=== PATIENT | female | born 1955 | race Caucasian/White ===

== ENCOUNTER 2016-02-27 13:51 | Inpatient (IN) | payer MEDICAID ==
[~2016-02-27] VITALS: Ht 149.9 cm; Wt 76.7 kg
[2016-02-27] VITALS (14 sets, daily range): BP systolic 78–94; RESP 12–25; TEMP 97.5; Ht 149.9 cm; Wt 76.7 kg
[2016-02-27] MEDS ORDERED: SODIUM CHLORIDE 0.9% 1,000 ML ONE ×2 (14:24→15:45)
[2016-02-27] MEDS ORDERED: TRAMADOL 50 MG TAB PO PRN (15:30)
[2016-02-27] MEDS ORDERED: ACETAMINOPHEN 325 MG TAB PO PRN (15:30)
[2016-02-27] MEDS ORDERED: NITROGLYCERIN SL 0.4 MG TAB SL PRN (15:30)
[2016-02-27] MEDS ORDERED: ONDANSETRON 4 MG VIAL IV PRN (15:30)
[2016-02-27] MEDS ORDERED: LORAZEPAM 0.5 MG TAB PO PRN (15:30)
[2016-02-27] MEDS ORDERED: MORPHINE 2 MG/ML SYR IV PRN (15:30)
[2016-02-27] MEDS ORDERED: TEMAZEPAM 15 MG CAP PO PRN (15:30)
[2016-02-27] MEDS ORDERED: DOCUSATE SOD 100 MG CAP PO PRN (15:30)
[2016-02-27] MEDS ORDERED: SALINE FLUSH 10 ML FLUSH PRN (15:30)
[2016-02-27] MEDS ORDERED: ALU/MAG/SIM 30 ML UDC PO PRN (15:30)
[2016-02-27] MEDS: SALINE FLUSH 10 ML FLUSH SCH (19:42)
[2016-02-28] VITALS (23 sets, daily range): BP systolic 87–117; RESP 12–22; TEMP 97.9–98.2
[2016-02-28] MEDS: SODIUM CHLORIDE 0.9% FLUSH BAG 500 ML IV SCH (06:00)
[2016-02-28] MEDS: SALINE FLUSH 10 ML FLUSH SCH ×2 (08:00→20:00)
[2016-02-28] MEDS: *HOME MEDS KEPT IN PHARMACY XX SCH ×2 (08:00→20:00)
[2016-02-28] MEDS ORDERED: MISSING DOSE XX ONE (08:55)
[2016-02-28] MEDS: ASPIRIN 81 MG CHEW TAB PO SCH (09:18)
[2016-02-28] MEDS: ASPIRIN EC 81 MG TAB PO SCH (12:40)
[2016-02-28] MEDS: NEB-ATROVENT INH SCH ×4 (12:40→22:23)
[2016-02-28] MEDS: PREGABALIN 75 MG CAP PO SCH ×2 (13:43→22:58)
[2016-02-28] MEDS: ARIPiprazole 15 MG TAB PO SCH (13:43)
[2016-02-28] MEDS: CITALOPRAM 20 MG TAB PO SCH (13:43)
[2016-02-28] MEDS: MAG OXIDE 400 MG TAB PO SCH ×3 (13:44→22:58)
[2016-02-28] MEDS: MDI-SPIRIVA 5 DOSES INH SCH (16:09)
[2016-02-28] MEDS: ROSUVASTATIN 20 MG TAB PO SCH (22:56)
[2016-02-28] MEDS: TRAZODONE 50 MG TAB PO SCH (22:57)
[2016-02-29 00:10] VITALS: BP_SYST 133; RESP 18; TEMP 97.6
[2016-02-29 04:30] VITALS: BP_SYST 115; RESP 18; TEMP 98.1
[2016-02-29] MEDS: NEB-ATROVENT INH SCH ×4 (05:29→22:57)
[2016-02-29] MEDS: MDI-SPIRIVA 5 DOSES INH SCH (05:30)
[2016-02-29] MEDS: SODIUM CHLORIDE 0.9% FLUSH BAG 500 ML IV SCH (06:00)
[2016-02-29] MEDS: *HOME MEDS KEPT IN PHARMACY XX SCH ×2 (08:00→20:00)
[2016-02-29] MEDS: ASPIRIN 81 MG CHEW TAB PO SCH (08:00)
[2016-02-29 08:13] VITALS: BP_SYST 105; RESP 18; TEMP 98.5
[2016-02-29] MEDS: ARIPiprazole 15 MG TAB PO SCH (08:28)
[2016-02-29] MEDS: ASPIRIN EC 81 MG TAB PO SCH (08:28)
[2016-02-29] MEDS: CITALOPRAM 20 MG TAB PO SCH (08:28)
[2016-02-29] MEDS: PREGABALIN 75 MG CAP PO SCH ×2 (08:28→22:01)
[2016-02-29] MEDS: SALINE FLUSH 10 ML FLUSH SCH ×2 (08:28→21:59)
[2016-02-29] MEDS: MAG OXIDE 400 MG TAB PO SCH ×3 (08:28→22:01)
[2016-02-29 11:38] VITALS: BP_SYST 107; RESP 20; TEMP 97.9
[2016-02-29 16:08] VITALS: BP_SYST 119; RESP 18; TEMP 98
[2016-02-29 20:23] VITALS: BP_SYST 114; RESP 18; TEMP 99.2
[2016-02-29] MEDS: ROSUVASTATIN 20 MG TAB PO SCH (21:59)
[2016-02-29] MEDS: TRAZODONE 50 MG TAB PO SCH (22:00)
[2016-03-01 05:20] VITALS: BP_SYST 95; RESP 18; TEMP 97.7
[2016-03-01] MEDS: SODIUM CHLORIDE 0.9% FLUSH BAG 500 ML IV SCH (06:00)
[2016-03-01] MEDS: NEB-ATROVENT INH SCH ×2 (07:15→15:59)
[2016-03-01] MEDS: MDI-SPIRIVA 5 DOSES INH SCH (07:20)
[2016-03-01 07:44] VITALS: BP_SYST 108; RESP 16; TEMP 98
[2016-03-01] MEDS: *HOME MEDS KEPT IN PHARMACY XX SCH ×2 (08:00→16:22)
[2016-03-01] MEDS: ARIPiprazole 15 MG TAB PO SCH (08:54)
[2016-03-01] MEDS: ASPIRIN EC 81 MG TAB PO SCH (08:55)
[2016-03-01] MEDS: PREGABALIN 75 MG CAP PO SCH (08:55)
[2016-03-01] MEDS: MAG OXIDE 400 MG TAB PO SCH ×2 (08:55→16:12)
[2016-03-01] MEDS: CITALOPRAM 20 MG TAB PO SCH ×2 (08:55→09:23)
[2016-03-01] MEDS: SALINE FLUSH 10 ML FLUSH SCH (08:56)
[2016-03-01] MEDS ORDERED: MISSING DOSE XX ONE (09:00)
[2016-03-01] MEDS: ASPIRIN 81 MG CHEW TAB PO SCH (11:28)
[2016-03-01 11:29] VITALS: BP_SYST 107; RESP 16; TEMP 98.1
[2016-03-01 15:16] VITALS: BP_SYST 107; RESP 16; TEMP 98.1
== END 2016-03-01 17:09 | disposition home or self-care (01) | DRG 683 ==
LOC: ENRESERVTM → ENRESERVDT → ER 13:51 → EMR 15:42 → ENPENDDIS 15:42 → CCU 18:01 → PCU2 02-28 17:59
PROVIDERS: ADMIT Specialist; ATTEND Specialist
CPT/HCPCS: 36415; 71010; 80048; 80053; 80061; 82550; 82553; 82947; 83036; 83721; 83735; 83880; 84439; 84443; 84484; 85025; 85610; 85730; 93005; 93306; 94640; 94799; 96360; 96361